=== PATIENT | female | born 1990 | race Caucasian/White ===

== ENCOUNTER 2019-10-26 13:23 | Emergency (ER) | payer OTHER ==
[~2019-10-26] VITALS: Ht 175.3 cm; Wt 104.3 kg
[~2019-10-26 13:23] MED LIST: BIFERA RX TABL1 EACH; IRON325; PRENATAL
== END 2019-10-26 14:25 | disposition home or self-care (01) ==
LOC: M.ERS 13:23
DX: S63.502A Unspecified sprain of left wrist, initial encounter (principal); Z88.6 Allergy status to analgesic agent; Z91.018 Allergy to other foods; Z91.013 Allergy to seafood; Z91.010 Allergy to peanuts; V89.2XXA Person injured in unspecified motor-vehicle accident, traffic, initial encounter; Y93.89 Activity, other specified; Y92.89 Other specified places as the place of occurrence of the external cause; Y99.8 Other external cause status